=== PATIENT | male | born 1995 | race Two or more races ===

== ENCOUNTER 2018-05-19 02:55 | Emergency (ER) | payer MEDICAID ==
[~2018-05-19] VITALS: Ht 180.3 cm; Wt 81.6 kg
[2018-05-19 03:03] VITALS: Ht 180.3 cm; Wt 81.6 kg
[2018-05-19 06:08] VITALS: BP 111/80
== END 2018-05-19 06:08 | disposition home or self-care (01) ==
LOC: ED 02:55
DX: S01.84XA Puncture wound with foreign body of other part of head, initial encounter (principal); F32.9 Major depressive disorder, single episode, unspecified; X58.XXXA Exposure to other specified factors, initial encounter; Y93.89 Activity, other specified; Y92.89 Other specified places as the place of occurrence of the external cause; Y99.8 Other external cause status
CPT/HCPCS: 90715